=== PATIENT | male | born 1985 | race Caucasian/White ===

== ENCOUNTER 2025-01-14 17:03 | Emergency (ER) | payer MEDICAID ==
[~2025-01-14] VITALS: Ht 182.9 cm; Wt 129.5 kg
[2025-01-14 17:16] VITALS: BP 161/112; PULSE 77; O2SAT 99
--- NOTE | 2025-01-14 17:20 | Physician Documentation ---
History of Present Illness ~ Stated Complaint: MIGRAINE/VOMITING Time Seen by MD: 19:24 OK to notify your PCP?: Yes Source: patient Mode of Arrival: POV Exam Limitations: no limitations HPI 39-year-old male with severe left-sided headache which started this morning when he woke up. He has also had some nausea and vomiting. He says the headache is behind his left eye and he does have a history of migraines and this feels the same. He has not taken any medications and does not have any prescribed rescue medications for his migraines. He endorses sensitivity to light and sound but no visual changes. In the past he has gotten IV fluids, Toradol and other medications to help with his migraine. Date: Jan 14, 2025 Time: 19:53 Additional note by Terrell Mathew DO: I took over the care of this patient from previous physician. I reviewed any previous notes available, obtain my own history, review of systems and physical examination was performed by myself. This is a 39-year-old gentleman who is traveling from [facility], who reports history of suicide headaches and confirms that he has a history of cluster headaches, presents for evaluation of headache that began shortly prior to arrival accompanied by nausea or vomiting. No obvious trigger provocation. No palliating or aggravating factors. He states this is the worst headache of life. Did not attempt to treat it. Denies any focal deficits. Denies any trauma. Medication Reconciliation Allergies: Coded Allergies: No Known Allergies (Unverified , 01/14/25) Review of Systems ROS 10 point review of systems was performed and unless noted above in HPI is negative for acute process/complaint. Physical Exam Vital Signs: RN Vital Signs have been reviewed: Yes Pulse Oximetry Reflects: adequate oxygenation Physical Exam General: Alert, no distress. HEENT: No injection, moist mucous membranes. PERRLA, EOMI. Neck: Full range of motion. Respiratory: No respiratory distress, equal chest rise and fall. Chest: No accessory muscle use. Cardiovascular: Regular rate and rhythm. Gastrointestinal: Nondistended. Extremities: Normal range of motion, no deformity. Neurologic: Oriented x4. Psychiatric: Normal mood and affect. Skin: Normal color, warm and dry. Progress Results/Orders Results/Orders Orders - TERRELL MATHEW DO Ct Head (01/14/25 19:24) Completed Orders - TERRELL MATHEW DO Ct Head (01/14/25 19:24) Ondansetron Inj. (Zofran 4mg/2ml Vial) (01/14/25 19:25) Dexamethasone Inj (Decadron 10mg/Ml Inj) (01/14/25 19:24) Sumatriptan Succ. Inj. (Imitrex 6mg Inj. (01/14/25 19:25) Medications Received in ER Medications (Trade) Dose Ordered Sig/Dinesh Route PRN Reason Start Time Stop Time Status Last Admin Dose Admin (0.9% sodium chloride (NS) 1000ml IV soln) 1,000 ml ONCE ONCE IVB 01/14/25 18:10 01/14/25 18:12 DC 01/14/25 20:29 1,000 ML (Toradol injection) 15 mg ONCE ONCE IV 01/14/25 18:10 01/14/25 18:12 DC 01/14/25 20:38 15 MG (Reglan inj) 10 mg ONCE ONCE IV 01/14/25 18:10 01/14/25 18:12 DC 01/14/25 20:38 10 MG (Zofran 4mg/2ml vial) 4 mg ONCE ONCE IV 01/14/25 19:25 01/14/25 19:27 DC 01/14/25 20:38 4 MG (Decadron 10mg/ ml inj) 10 mg ONCE STAT IV 01/14/25 19:24 01/14/25 19:27 DC 01/14/25 19:24 10 MG (Imitrex 6mg inj.) 6 mg ONCE ONCE SQ 01/14/25 19:25 01/14/25 19:27 DC 01/14/25 20:29 6 MG Vital Signs 01/14/25 01/14/25 17:16 20:38 Temp 98.6 Pulse 77 Resp 18 16 B/P (MAP) 161/112 Pulse Ox 99 O2 Flow Rate 0 Medical Decision Making Findings Facility Status: [facility] Holds, [facility] The plan was discussed with the patient, who demonstrates clear understanding of the plan and is in agreement with the plan unless otherwise noted in the chart. All questions have been answered, all concerns were addressed unless otherwise documented. I was available throughout their ED stay for frequent reassessment and questions. Differential Diagnoses (considered and possible or likely): [Tension headache, cluster headache, migraine, less likely subdural, subarachnoid, less likely trigeminal neuralgia] ??Differential Diagnoses (considered and unlikely, not requiring evaluation currently): [No evidence of focal deficits at this time] MDM Data Please see [facility] for the following: Independent Historians and external Records Re view. Historian: [Patient] Independent Historians: ?[Significant other] Medication Management: [Reviewed medication list] Social History and determinants: [Reviewed] Please see the body of the note for the following: Any independent interpretations of ECG, imaging studies. All vitals signs/haemodynamics, ordered tests were independently reviewed and interpreted by myself. Nursing triage complaint and vitals reviewed, additional nursing notes were reviewed as available and I agree unless otherwise noted or documented in contradiction in the chart Vital Signs: Independently reviewed Labs: Independently interpreted Imaging: Independently interpreted Old Medical Records: Independently reviewed, see [facility] for relevant summary and information Pulse Oximetry: [97%] interpreted as [normal on room air] by me Additionally notably showing: [Hemodynamically stable. CT shows no acute intracranial process.] Tests considered but not ordered include: [Blood work does not appear to be necessary given his presenting complaint] Social Determinants of Health Impact: Patient was evaluated in [facility], or [facility] [place] to healthcare due to below par ratio of patient to medical providers. [] Comorbid Conditions Impacting Present Evaluation and Care/Treatment: [History of cluster headaches] Management Discussions with other Healthcare Providers: [] Treatment and Disposition Medication Management (Given or considered): [Migraine cocktail and oxygen]. See EMR for details Consideration for Hospitalization/Escalation/Deescalation of Care: Admission for observation has been considered, [however the patient is able to tolerate p.o., their symptoms are controlled, they are able to rely on oral medications, and their chief complaint/diagnosis can be managed on outpatient basis.] ?ED Course:?[Headache is better] ?Shared decision making:?[Patient is hemodynamically stable for discharge home with follow with their primary care provider. [ ] Specific and cautious return precautions provided and discussed with full understanding. Any incidental findings were also discussed and follow up recommendations given. [] All questions answered. Patient/family were able to verbalize back return precautions. Patient/family agree to plan. Copies of imaging and laboratory studies were provided.] Code status:?FULL Please see the full Electronic Medical Record for full details of nursing documentation, medications list, other records of complete past medical history and conditions, vital signs, laboratory studies, and any radiologic study interpretations by radiologists. Portions of this note were completed using [employer] dictation software and as a result there may exist minor errors in spelling. I have reviewed elements of past family and social history and agree as included in note. Departure Impression: Primary Impression: Cluster headache syndrome, not intractable Condition: Improved Discharge Instructions: Headache Referrals: NO PRIMARY CARE PROVIDER (PCP) Prescriptions Sumatriptan Succinate (Imitrex) 25 Mg Tablet 1 TAB PO DAILY for 9 Days, #9 TAB 0 Refills Prov: TERRELL MATHEW DO 01/14/25 Education Educated: Patient Educated regarding: diagnosis, treatment, prognosis, need for follow up Additional Comment Medical Screen Exam This patient recieved a medical screening examination. After reviewing the individual's medical complaints with presenting symptoms and performing an appropriate physical examination, it was determined that no immediate life- threatening emergency medical condition is present. This individual is also not a women having contractions. Signature Scribe Signature: No scribe Attestation: This note accurately reflects clinical decisions, work performed by myself, DO ANGELA Nicholas ASHLEY D [facility] Jan 14, 2025 17:20 TERRELL MATHEW DO Jan 14, 2025 19:55
[2025-01-14] MEDS: dexamethasone sod phosphate 10mg/ml inj IV STA (19:24)
--- NOTE | 2025-01-14 20:24 | RADIOLOGY REPORT ---
CLINICAL HISTORY: worst [place]STAN[place] of life TECHNIQUE: Helical imaging carried out from skull base to vertex without intravenous contrast. This exam was performed according to our departmental dose optimization program. Up-to-date CT equipment and radiation dose reduction techniques are utilized as appropriate. CTDIVol: 63.15 mGy DLP: 1254.38 thing Q gas passes mGy-cm WID: COMPARISON: None FINDINGS: The ventricles and subarachnoid spaces are normal in size and configuration. There is no midline shift or mass effect. The vinson white matter interfaces are maintained. The basal cisterns are patent. There is no evidence of acute intracranial hemorrhage or extra-axial fluid collection. The mastoid air cells and visualized paranasal sinuses are well-aerated. IMPRESSION: 1. No acute intracranial abnormality.
[2025-01-14] MEDS: normal saline 1000ML IV soln IVB ONE (20:29)
[2025-01-14] MEDS: SUMAtriptan succ. 6 MG/0.5ml vial SQ ONE (20:29)
[2025-01-14 20:38] VITALS: RESP 16
[2025-01-14] MEDS: ketorolac trometh 15mg/ml vial 15 MG/ML ML IV ONE (20:38)
[2025-01-14] MEDS: metoclopramide 5 mg/ml inj IV ONE (20:38)
[2025-01-14] MEDS: ondansetron/PF 4mg/2ml inj IV ONE (20:38)
[2025-01-14] MEDS ORDERED: SUMA25TA35 PO (20:59)
[2025-01-14 21:10] VITALS: TEMP 98.6
== END 2025-01-14 21:19 | disposition home or self-care (01) ==
LOC: ER 17:04
DX: G43.909 Migraine, unspecified, not intractable, without status migrainosus (principal)
CPT/HCPCS: 70450; 96361; 96372; 96374; 96375; 99285; J1100; J1885; J2405; J2765; J3030; J7030; A4620